=== PATIENT | female | born 1965 | race Caucasian/White ===

== ENCOUNTER 2016-11-22 16:11 | Emergency (ER) | payer SELFPAY ==
[~2016-11-22] VITALS: Ht 167.6 cm; Wt 76.8 kg
[~2016-11-22 16:11] MED LIST: AMIT25TA PO; LORA0.5T PO; NAPR500T3 PO; PARO20TA55 PO; SUVO10TA PO
[2016-11-22] MEDS ORDERED: LORazepam 1MG TABLET ONE (16:27)
[2016-11-22] MEDS ORDERED: LORazepam 1MG TABLET PO ONE (16:30)
[2016-11-22] MEDS ORDERED: PLEASE ENTER HEIGHT AND WEIGHT MC SCH (17:00)
[2016-11-22] MEDS ORDERED: ACETAMINOPHEN 500 MG TABLET ONE (18:41)
[2016-11-22] MEDS ORDERED: ACETAMINOPHEN 500 MG TABLET PO ONE (19:00)
[2016-11-22] MEDS ORDERED: ACETAMINOPHEN 325 MG TABLET PO ONE (19:00)
[2016-11-22 19:31] VITALS: BP 154/94
== END 2016-11-22 19:32 | disposition home or self-care (01) ==
LOC: ED 19:30
DX: F43.20 Adjustment disorder, unspecified (principal); R53.83 Other fatigue; J45.909 Unspecified asthma, uncomplicated; Z86.74 Personal history of sudden cardiac arrest
CPT/HCPCS: 93005

== ENCOUNTER 2016-11-24 16:37 | Inpatient (IN) | payer SELFPAY ==
[~2016-11-24] VITALS: Ht 170.2 cm; Wt 78.8 kg
[2016-11-24] MEDS ORDERED: ONDANSETRON 2MG/ML, 2ML IVPush ONE (17:00)
[2016-11-24] MEDS ORDERED: NALOXONE 0.4 MG/ML, 1ML IVPush PRN (17:00)
[2016-11-24] MEDS ORDERED: SODIUM CHLORIDE FLUSH 10ML SYR IVF ONE (17:00)
[2016-11-24] MEDS ORDERED: SODIUM CHLORIDE 0.9% 1,000ML IVBOLUS ONE (17:00)
[2016-11-24] MEDS ORDERED: NALOXONE 0.4 MG/ML, 1ML ONE (17:23)
[2016-11-24] MEDS ORDERED: ONDANSETRON 2MG/ML, 2ML ONE (17:23)
[2016-11-24 17:40] LABS: BLOOD UREA NITROGEN 11 mg/dL (7-18)
[2016-11-24 17:47] LABS: ASPARTATE AMINO TRANSFERASE 11 U/L (15-37)
[2016-11-24 17:50] LABS: ACETAMINOPHEN < 2 mcg/mL (10-30)
[2016-11-24] MEDS: SODIUM CHLORIDE 0.9% 1,000 ML IV SCH (19:49)
[2016-11-24] MEDS ORDERED: METOCLOPRAMIDE 5 MG/ML, 2ML IVPush PRN (20:00)
[2016-11-24 20:17] LABS: IS PT STATUS REG ER OR PRE ER? YES
[2016-11-24 22:42] VITALS: BP 153/87
[2016-11-24] MEDS: AMPICILLIN/SULBACTAM 3 GM in SODIUM CHLORIDE 0.9% 100 ML IV SCH (23:58)
[2016-11-25] MEDS: ENOXAPARIN 40 MG/0.4 ML SQ SCH (00:02)
[2016-11-25 02:14] LABS: BLOOD UREA NITROGEN 7 mg/dL (7-18)
[2016-11-25 02:18] LABS: IS PT STATUS REG ER OR PRE ER? NO
[2016-11-25 02:27] LABS: ASPARTATE AMINO TRANSFERASE 8 U/L (15-37)
[2016-11-25 03:59] VITALS: BP 121/76
[2016-11-25] MEDS: SODIUM CHLORIDE 0.9% 1,000 ML IV SCH ×2 (05:53→12:09)
[2016-11-25] MEDS: AMPICILLIN/SULBACTAM 3 GM in SODIUM CHLORIDE 0.9% 100 ML IV SCH (05:53)
[2016-11-25 08:08] VITALS: BP 132/84
[2016-11-25] MEDS ORDERED: AMITRIPTYLINE 25 MG TABLET PO PRN (10:30)
[2016-11-25] MEDS: ACETAMINOPHEN 325 MG TABLET PO PRN (10:42)
[2016-11-25] MEDS: PAROXETINE 20 MG TABLET PO SCH (10:52)
[2016-11-25 12:06] VITALS: BP 133/79
[2016-11-25 13:23] VITALS: BP 150/75
[2016-11-25] MEDS: AZITHROMYCIN 500 MG in SODIUM CHLORIDE 0.9% 250 ML IV SCH (15:18)
[2016-11-25] MEDS: ONDANSETRON 2MG/ML, 2ML IVPush PRN (15:49)
[2016-11-25] MEDS: CEFTRIAXONE PMX 1GM/50ML 50 ML IV SCH (17:48)
[2016-11-25 19:44] VITALS: BP 137/81
[2016-11-26] MEDS: ENOXAPARIN 40 MG/0.4 ML SQ SCH (01:20)
[2016-11-26 03:12] VITALS: BP 115/69
[2016-11-26 06:45] VITALS: BP 142/84
[2016-11-26] MEDS: PAROXETINE 20 MG TABLET PO SCH (09:00)
[2016-11-26] MEDS: ACETAMINOPHEN 325 MG TABLET PO PRN ×2 (09:00→15:09)
[2016-11-26 09:36] LABS: PATH.CAST-FLAG NOT PRESENT; SPERM-FLAG NOT PRESENT; SRC-FLAG NOT PRESENT; XTAL-FLAG NOT PRESENT; YLC-FLAG NOT PRESENT
[2016-11-26] MEDS: ONDANSETRON 2MG/ML, 2ML IVPush PRN (11:33)
[2016-11-26 12:40] VITALS: BP 123/77
[2016-11-26] MEDS: AZITHROMYCIN 500 MG in SODIUM CHLORIDE 0.9% 250 ML IV SCH (15:09)
[2016-11-26] MEDS: CEFTRIAXONE PMX 1GM/50ML 50 ML IV SCH (16:52)
[2016-11-26 18:36] VITALS: BP 153/87
[2016-11-26] MEDS: GUAIFENESIN ER 600 MG TABLET PO PRN (22:36)
[2016-11-27] VITALS: BP 139/76
[2016-11-27] MEDS: ENOXAPARIN 40 MG/0.4 ML SQ SCH (00:19)
[2016-11-27 06:45] VITALS: BP 162/98
[2016-11-27 07:35] VITALS: BP 161/70
[2016-11-27 08:10] VITALS: BP 148/72
[2016-11-27] MEDS: PAROXETINE 20 MG TABLET PO SCH (08:54)
[2016-11-27] MEDS: ONDANSETRON 2MG/ML, 2ML IVPush PRN ×2 (09:06→15:15)
[2016-11-27 12:30] VITALS: BP 131/81
[2016-11-27] MEDS: AZITHROMYCIN 500 MG in SODIUM CHLORIDE 0.9% 250 ML IV SCH (15:14)
[2016-11-27] MEDS: CEFTRIAXONE PMX 1GM/50ML 50 ML IV SCH (17:01)
[2016-11-27 19:05] VITALS: BP 127/76
[2016-11-27] MEDS: GUAIFENESIN ER 600 MG TABLET PO PRN (19:44)
[2016-11-28] MEDS: ENOXAPARIN 40 MG/0.4 ML SQ SCH (00:21)
[2016-11-28 01:28] VITALS: BP 133/79
[2016-11-28] MEDS: ACETAMINOPHEN 325 MG TABLET PO PRN ×2 (06:16→19:24)
[2016-11-28] MEDS: ONDANSETRON 2MG/ML, 2ML IVPush PRN (06:17)
[2016-11-28 07:32] VITALS: BP 147/84
[2016-11-28] MEDS: PAROXETINE 20 MG TABLET PO SCH (09:55)
[2016-11-28] MEDS ORDERED: POLYETHYLENE GLYCOL 17 GM PACKET PO ONE (10:30)
[2016-11-28 14:11] VITALS: BP 170/94
[2016-11-28] MEDS ORDERED: hydrALAzine 20 MG/ML, 1ML IV PRN (14:30)
[2016-11-28] MEDS: AZITHROMYCIN 500 MG in SODIUM CHLORIDE 0.9% 250 ML IV SCH (14:38)
[2016-11-28] MEDS: CEFTRIAXONE PMX 1GM/50ML 50 ML IV SCH (15:57)
[2016-11-28 16:18] VITALS: BP 136/90
[2016-11-28 19:27] VITALS: BP 149/85
[2016-11-28] MEDS: GUAIFENESIN ER 600 MG TABLET PO PRN (21:31)
[2016-11-29] MEDS: ENOXAPARIN 40 MG/0.4 ML SQ SCH (00:11)
[2016-11-29 02:49] VITALS: BP 150/83
[2016-11-29 07:40] VITALS: BP 143/86
[2016-11-29] MEDS: PAROXETINE 20 MG TABLET PO SCH (09:08)
[2016-11-29] MEDS ORDERED: CEFD300C37 PO (09:09)
[2016-11-29] MEDS ORDERED: DOXY100T PO (09:09)
[2016-11-29] MEDS ORDERED: GUAI600T22 PO (09:09)
[2016-11-29] MEDS ORDERED: METO25TA35 PO (09:11)
[2016-11-29] MEDS ORDERED: METOPROLOL TARTRATE 25 MG TABLET PO SCH (18:00)
== END 2016-11-29 12:05 | disposition home or self-care (01) | DRG 917 ==
LOC: ED 18:09 → EDIP 18:36 → 5SO 22:35 → 4WST 11-25 15:26 → DCLOUNGE 11-29 11:30
PROVIDERS: ADMIT Internal Medicine; ATTEND Internal Medicine
DX: T40.2X1A Poisoning by other opioids, accidental (unintentional), initial encounter (principal); J96.01 Acute respiratory failure with hypoxia; G92 Toxic encephalopathy; J69.0 Pneumonitis due to inhalation of food and vomit; E87.1 Hypo-osmolality and hyponatremia; F32.9 Major depressive disorder, single episode, unspecified; F41.1 Generalized anxiety disorder; F17.210 Nicotine dependence, cigarettes, uncomplicated; Z88.8 Allergy status to other drugs, medicaments and biological substances; Z91.041 Radiographic dye allergy status
CPT/HCPCS: 36415; 71010; 80053; 80307; 80329; 81001; 82565; 83735; 84100; 84443; 84484; 84703; 85025; 87070; 87086; 87205; 93005; 96361; 96374; 96375; J0295; J0456; J0696; J1650; J2310; J2405; G0480; J0360; J2765; J7030; J7050

== ENCOUNTER → 2017-03-11 | Outpatient (CLI) | payer SELFPAY ==
[~2017-03-11] MED LIST changes: +CEFD300C37 PO; +DOXY100T PO; +GUAI600T31 PO; +METO25TA35 PO; -PARO20TA55 PO; +PARO20TA98 PO
== END | disposition home or self-care (01) ==
LOC: CFH 10:17
PROVIDERS: ATTEND Family Medicine
DX: R16.0 Hepatomegaly, not elsewhere classified (principal); Z90.49 Acquired absence of other specified parts of digestive tract
CPT/HCPCS: 76705

== ENCOUNTER → 2019-11-07 | Outpatient (CLI) | payer OTHER ==
[~2019-11-07] MED LIST changes: +NAPR-685 PO; -NAPR500T3 PO
== END | disposition home or self-care (01) ==
LOC: EDSTATUS 05-01 10:45 → MERGE 13:37 → CFH 13:37 → EDSTATUS 13:45
PROVIDERS: ATTEND Family Medicine
DX: Z12.31 Encounter for screening mammogram for malignant neoplasm of breast (principal)
CPT/HCPCS: 77067